=== PATIENT | female | born 1965 | race Caucasian/White ===

== ENCOUNTER 2021-04-22 08:21 | Emergency (ER) | payer OTHER, SELFPAY ==
[2021-04-22 08:22] VITALS: BP 128/92; PULSE 74; RESP 18; TEMP 36.6; O2SAT 98
--- NOTE | 2021-04-22 08:39 | RAD_ITS ---
STUDY: X-RAY - RIGHT FOOT CLINICAL: Female, 55 years old. Injury/Pain TECHNIQUE: 3 view(s) of the foot. COMPARISON: None. FINDINGS: Normal talus, calcaneus, and tarsal bones. Normal visualized subtalar, talonavicular, calcaneocuboid, tarsal and tarsometatarsal articulations. Normal metatarsi. Normal metatarsophalangeal joint of the great toe. Normal tibial and fibular sesamoid bones. Normal interphalangeal joint of the great toe. Normal phalanges of the great toe. Normal second through fifth metatarsophalangeal joints. Normal interphalangeal joints and phalanges of the lesser toes. Soft tissue swelling. RAD/Foot min 3 Views IMPRESSION: Soft tissue swelling. Electronically Signed: Jett Dockery MD at 9:16 EDT , Service support ,
[2021-04-22] MEDS: Ibuprofen 600 MG Tablet PO (08:46)
--- NOTE | 2021-04-22 08:50 | RAD_ITS ---
STUDY: X-RAY - RIGHT ANKLE REASON FOR EXAM: Female, 55 years old. Injury/Pain TECHNIQUE: 3 view(s) of the ankle. COMPARISON: None. FINDINGS: Normal visualized distal tibia and fibula. Normal medial and lateral malleoli. Normal tibiotalar articulation and ankle mortise. Normal visualized talus and calcaneus. The visualized subtalar, talonavicular, calcaneocuboid and tarsal articulations are normal. Soft tissue swelling overlying the lateral malleolus. RAD/Ankle min 3 Views IMPRESSION: Soft tissue swelling overlying the lateral malleolus. Electronically Signed: Jett Dockery MD at 9:16 EDT , Service support ,
--- NOTE | 2021-04-22 09:08 | ED.VIS.LOWEX ---
HPI History of Present Illness Chief Complaint: Lower Extremity Injury Informant: patient Narrative Narrative: Patient is a 55-year-old female with history of hypertension and hyperlipidemia as well as GERD presenting with right ankle pain. Patient states she was gardening yesterday when she stepped in a hole with her right foot. She not exactly sure what happened but she immediately had pain. The pain is diffuse in her ankle and also on the lateral aspect of her foot. She has continued to walk on it but continue to have pain and swelling today so she came in to be evaluated. She is been taking Tylenol at home because she states all she has. She denies associated numbness or tingling. No other complaints or injuries. [facility] Medical History Hyperlipemia Hypertension Home Medications aspirin 81 mg PO DAILY 04/22/21 [History Last Taken Unknown] atorvastatin [Lipitor] 10 mg PO QHS 04/22/21 [History Last Taken Unknown] coenzyme Q10 [CoQ-10] 100 mg PO DAILY 04/22/21 [History Last Taken Unknown] metoprolol succinate 50 mg PO BID 04/22/21 [History Last Taken Unknown] pantoprazole [Protonix] 40 mg PO DAILY 04/22/21 [History Last Taken Unknown] Allergy/AdvReac Type Severity Reaction Status Date / Time No Known Allergies Allergy Verified 04/22/21 08:24 Surgical History History of tonsillectomy Social History Smoking Status: Never smoker [facility] ED Constitutional Constitutional ED: Reports frequent falls; Denies fever(s) Eyes Eyes: Denies change in vision or eye pain ENT ENT ED: Denies dental pain or nasal trauma Cardiovascular Cardiovascular: Denies chest pain or syncope Respiratory/Chest Respiratory/Chest: Denies cough or dyspnea Gastrointestinal Gastrointestinal: Denies abdominal pain or nausea Musculoskeletal Musculoskeletal: Reports other Details: right ankle and foot pain ; Denies back pain or myalgias Integumentary Denies Abrasions or wounds Neurologic Neurologic: Denies headache(s), paresthesias or weakness Psychiatric Psychiatric: Denies anxiety or depression Hematologic/Lymphatic Hematologic/Lymphatic: Denies easy bleeding or easy bruising EXAM Physical Exam Const Vital Signs: 04/22/21 08:22 Temperature 97.9 F Temperature Source Temporal Pulse Rate 74 Respiratory Rate 18 Blood Pressure 128/92 H Blood Pressure Mean 104 Pulse Ox 98 Oxygen Delivery Method Room Air Positive well nourished and well developed General Appearance ED: well developed HEENT normocephalic and atraumatic; Negative for Stephens's sign or raccoon eyes Nose: no nasal discharge Mouth ED: Yes other Mouth: other Other Details: No Malocclusion Eyes PERRL Neck full ROM Thyroid: Negative for tender Chest Wall inspection of chest normal and palpation of chest normal Chest: Negative for crepitus Resp normal respiratory effort, no retractions and clear to auscultation bilaterally Cardio regular rate and regular rhythm Jugular Venous Distention: Negative for JVD Peripheral Pulses: pulses 2+ throughout Extremity full ROM Extremity Narrative: pelvis stable, no deformity Swelling of the right ankle, more pronounced on the lateral aspect as well as the right proximal lateral foot. Tenderness palpation over the lateral inferior ankle as well as fifth metatarsal head. No obvious deformity. Range of motion limited secondary to pain. Normal Mitchell test. Neuro oriented x3, moves all extremities and no sensory deficits noted Sensorium / Orientation: alert Motor Exam: strength 5/5 throughout Psych mental status grossly normal Skin no wounds Trauma: Negative for abrasion MDM MDM MDM Narrative Medical decision making narrative: Patient injured her right ankle/foot yesterday. X-ray shows no acute fracture but does show soft tissue swelling consistent with physical exam. I do not suspect an Achilles tendon rupture. Do not suspect an occult fracture based on presentation. This is likely a sprain. Patient placed in air stirrup and discharged home. Her has a podiatry she will follow up with as needed. Instructed to take NSAIDs and counseled on rice therapy. Radiography X-Ray: Read by ED Physician and Read by Radiologist Diagnostic Testing: Radiology Impression Foot X-Ray 04/22/21 08:39 IMPRESSION: Soft tissue swelling. Electronically Signed: Jett Dockery MD at 9:16 EDT , Service support , Ankle X-Ray 04/22/21 08:50 IMPRESSION: Soft tissue swelling overlying the lateral malleolus. Electronically Signed: Jett Dockery MD at 9:16 EDT , Service support , Treatment and Re-Evaluation Comments:: Motrin, x-ray shows no fracture Air-Stirrup splint placed. Discharged home. Discharge Plan Triage Chief Complaint: Lower Extremity Injury ED Provider: Honey Pierre Dx/Rx/DC Orders Clinical Impression: Sprain of ankle, right Instructions: ED Ankle Sprain (Adult), ED Air Stirrup Ank Brace Inf Td Prescriptions: No Action atorvastatin [Lipitor] 10 mg Tablet 10 mg PO QHS RF: 0 metoprolol succinate 50 mg Tablet Extended Release 24 Hr 50 mg PO BID RF: 0 pantoprazole [Protonix] 40 mg Tablet,Delayed Release (Dr/Ec) 40 mg PO DAILY RF: 0 aspirin 81 mg Tablet 81 mg PO DAILY RF: 0 coenzyme Q10 [CoQ-10] 100 mg Capsule 100 mg PO DAILY RF: 0 Referrals: Jayce Farmer [Other] Disposition Disposition: Home, self care
[2021-04-22 09:49] VITALS: PULSE 76; RESP 17; O2SAT 98
== END 2021-04-22 09:50 | disposition home or self-care (01) ==
PROVIDERS: Emergency Provider Emergency Medicine
DX: S93.401A Sprain of unspecified ligament of right ankle, initial encounter (principal); E78.5 Hyperlipidemia, unspecified; I10 Essential (primary) hypertension; K21.9 Gastro-esophageal reflux disease without esophagitis; W18.40XA Slipping, tripping and stumbling without falling, unspecified, initial encounter; Z79.82 Long term (current) use of aspirin; Z79.899 Other long term (current) drug therapy
CPT/HCPCS: 73610; 73630; 99283